=== PATIENT | female | born 1965 | race Caucasian/White ===

== ENCOUNTER 2025-05-16 09:57 | Outpatient (CLI) | payer OTHER, SELFPAY | END 2025-05-16 09:58 | disposition home or self-care (01) | LOC: SLEEP 10:02 | PROVIDERS: Referring Provider Nurse Practitioner Family; Visit Provider Internal Medicine Pulmonary Disease | DX: G47.33 Obstructive sleep apnea (adult) (pediatric) (principal); R09.02 Hypoxemia | CPT/HCPCS: G0399 ==